=== PATIENT | female | born 1985 | race Hispanic/Latino ===

== ENCOUNTER 2022-06-28 23:31 | Emergency (ER) | payer OTHER ==
[~2022-06-28] VITALS: Ht 162.6 cm; Wt 142.9 kg
[2022-06-28 23:53] VITALS: BP 117/63
[2022-06-29] MEDS ORDERED: ACETAMINOPHEN 500 MG TABLET ONE (01:06)
[2022-06-29] MEDS ORDERED: AZIT500T2 PO (01:22)
[2022-06-29] MEDS ORDERED: ACETAMINOPHEN 500 MG TABLET PO ONE (01:30)
== END 2022-06-29 01:27 | disposition home or self-care (01) ==
LOC: EDH 23:31
DX: J06.9 Acute upper respiratory infection, unspecified (principal); Z20.822 Contact with and (suspected) exposure to COVID-19
CPT/HCPCS: 99283; 87635; 87880; 87804 ×2; C9803